=== PATIENT | female | born 1980 | race Caucasian/White ===

== ENCOUNTER 2018-10-26 09:02 | Day surgery (SDC) | payer BC ==
[~2018-10-26] VITALS: Ht 144.8 cm; Wt 48.3 kg
[2018-10-26] MEDS ORDERED: CALC667C PO (10:54)
[2018-10-26] MEDS ORDERED: TRIA15CR55 TOP (10:55)
[2018-10-26] MEDS ORDERED: SVL800C PO (10:56)
[2018-10-26 10:57] VITALS: Ht 144.8 cm; Wt 48.3 kg
[2018-10-26] MEDS ORDERED: NIFE60TA18 PO (10:57)
[2018-10-26] MEDS ORDERED: LOSA100T15 PO (10:58)
[2018-10-26] MEDS ORDERED: EPOE40002 SC (10:58)
[2018-10-26] MEDS ORDERED: CYAN500T46 PO (10:59)
[2018-10-26] MEDS ORDERED: CLON0.2T5 PO (11:00)
[2018-10-26 11:01] VITALS: BP 138/85; PULSE 62; RESP 16
[2018-10-26] MEDS ORDERED: CHOL500010 PO (11:01)
[2018-10-26] MEDS ORDERED: LIDOCAINE 1% (MDV) 20 ML INJ ONE (11:35)
[2018-10-26] MEDS ORDERED: HEPARIN 1000 UNITS/NS (A-LINE) 1,000 ML ONE (11:35)
[2018-10-26] MEDS ORDERED: IODIXANOL LOCM 100 ML BTL ONE (11:35)
[2018-10-26] MEDS ORDERED: FENTAnyl 50 MCG/ML VIAL ONE (11:37)
[2018-10-26] MEDS ORDERED: MIDAZOLAM 1 MG/ML 2 ML INJ ONE (11:37)
--- NOTE | 2018-10-26 13:22 | SIPON ---
Date/Time of Note Date/Time of Note DATE: 10/26/18 TIME: 13:21 Operative Report Preoperative Diagnosis ESRD, pulsatile flow LUE AVF Postoperative Diagnosis same Operation/Procedure Performed LUE fistulogram, venoplasty severe cephalic arch lesions Surgeon see signature line gynecological assistant n/a Anesthesia: moderate sedation, other (local) Estimated blood loss: minimal Transfusion Required none Specimen n/a Grafts/Implants none Complications none FILI ATKINSON MD Oct 26, 2018 13:22
[2018-10-26 14:08] VITALS: BP 139/84; PULSE 67; RESP 18
--- NOTE | 2018-10-27 08:15 | OPR ---
DATE OF OPERATION: 10/26/2018 PREOPERATIVE DIAGNOSIS: End-stage renal disease. POSTOPERATIVE DIAGNOSIS: End-stage renal disease. PROCEDURES PERFORMED: 1. Left upper extremity arteriovenous fistulogram. 2. Venoplasty of severe cephalic arch lesions. ESTIMATED BLOOD LOSS: Minimal. ANESTHESIA: Moderate sedation and local. SPECIMENS: None. COMPLICATIONS: None. PREOPERATIVE INDICATIONS: This is a 38-year-old female with end-stage renal disease on dialysis via left arm AV fistula with worsening pulsatility and aneurysmal changes. She also has noted lateral la rge tributaries down the forearm that had formed recently. She now presents for a fistulogram with p ossible intervention. The indications, risks and benefits of the procedure were discussed with the p atient who understood and agreed to proceed. DESCRIPTION OF PROCEDURE: The patient was properly identified, brought to the angiography suite and placed in the supine position. The patient's left upper extremity was prepped and draped in the usua l sterile fashion. Ultrasound was used to evaluate the fistula, which was widely patent in the dista l upper arm. However, there was some noted tortuosity and some mild stenoses there. However, the maryann notic areas must be more of the proximal/central. Therefore, access was fine for antegrade. Local a nesthesia was injected into the AV fistula near the AC fossa and ultrasound was used to direct microp uncture needle access under direct visualization. Micropuncture wire was advanced under fluoroscopy. A micropuncture sheath was then placed. A fistulogram was then performed. This demonstrated that the fistula was widely patent in the arm with some tortuosity and moderate stenosis in one area. The re was a large lateral tributary going down into the forearm and connecting to the deep venous system . The cephalic arch splits into 3 branches with stenotic areas. The main branch was severely stenos ed in comparison to the remainder of the fistula at that site. The central veins were patent. There fore, given these findings, an 0.035 floppy Glidewire was advanced and the micro sheath was exchanged for a 6-Swedish short sheath. The wire was actually able to traverse over the tortuosity and across the cephalic arch severe lesions. A 6 x 40 balloon was then advanced and used for venoplasty of the severe lesions in the cephalic arch. This resulted in marked improvement in luminal diameter and sammie w. There was also moravian of a thrill on examination. Given this, the devices were removed. Th e sheath was removed and hemostasis was obtained with manual compression. The patient tolerated the procedure well without any immediate complications and was transferred in good condition. Dictated By: FILI MYLES/MICHELLE Conf#: [id number] DID#: [id number] CC: FILI Ho;*EndCC*
== END 2018-10-26 15:25 | disposition home or self-care (01) ==
LOC: SDS 09:02 → CCL 09:02
PROVIDERS: ATTEND Surgery
DX: I12.0 Hypertensive chronic kidney disease with stage 5 chronic kidney disease or end stage renal disease (principal); N18.6 End stage renal disease
CPT/HCPCS: 36901; 84132; 84703; C1725; C1894; J1644; J2250; J3010; Q9967